=== PATIENT | male | born 1950 | race Caucasian/White ===

== ENCOUNTER 2018-09-27 07:44 | Day surgery (SDC) | payer MEDICARE, BC ==
[~2018-09-27] VITALS: Ht 177.8 cm; Wt 64.9 kg
[2018-09-27] VITALS (7 sets, daily range): BP systolic 99–119; BP diastolic 54–75
--- NOTE | 2018-09-27 07:06 | Anethesia Preoperative Eval ---
Anesthesia Pre-op PMH/ROS General Date of Evaluation: Sep 27, 2018 Time of Evaluation: 07:04 Anesthesiologist: joyce ASA Score: ASA 2 Mallampati Score Class I : Soft palate, uvula, fauces, pillars visible Class II: Soft palate, uvula, fauces visible Class III: Soft palate, base of uvula visible Class IV: Only hard plate visible Mallampati Classification: Class III Surgeon: ian Diagnosis: abdominal pain Surgical Procedure: colonoscopy Anesthesia History: none Social History: smoking - former smoker Allergies: Coded Allergies: No Known Allergies (Unverified , 09/27/18) Medications: see eMAR Patient NPO?: Yes Past Medical History Gastrointestinal/Genitourinary: Reports: GERD HEENT: Reports: cataract (L), cataract (R) Anesthesia Pre-op Phys. Exam Physician Exam Constitutional: NAD Neurologic: CN 2-12 intact, other - disconjugate gaze Cardiovascular: RRR Respiratory: CTA Gastrointestinal: S/NT/ND Airway Exam Mallampati Score: Class II MO: full Neck: flexible TMD: 2fb ROM: full Anesthesia Pre-op A/P Risk Assessment & Plan Assessment: asa2 Plan: mac Status Change Before Surgery: No Pre-Antibiotics Drug: Charissa Aquino MD Sep 27, 2018 07:06
[~2018-09-27 07:44] MED LIST: ASPIR 8181 MG ORAL; Atropine Inj 1mg/10ml Syr IV PRN; DEXILANT60 MG ORAL; DiphenhydrAMINE 50mg/ml Inj IVP PRN; LR 1000ml 1,000 ML IVLG SCH; MULTIVITAMINS1 EAC2 ORAL; Midazolam 2mg/2ml Inj IVP PRN; NKM; fentaNYL 100 mcg/2 mL IV PRN
[2018-09-27] MEDS ORDERED: Lidocaine 1% MPF 10mg/ml 5ml ONE (09:00)
[2018-09-27] MEDS ORDERED: LR 1000ml ONE (09:00)
[2018-09-27] MEDS ORDERED: Propofol 200mg/20ml IV ONE (09:00)
--- NOTE | 2018-09-27 09:09 | Short Stay Surgery H&P ---
History of Present Illness History of Present Illness Chief Complaint Abdominal pains and screening colonoscopy for familial colon CA HPI Usman Roman is a 67 year old male who was admitted on for Abdominal Pain/ screening colon Patient History Allergies: Coded Allergies: No Known Allergies (Unverified , 09/27/18) PAST MEDICAL HISTORY: (1) Diverticulosis Medication History Scheduled Aspirin* (Aspir 81*), 81 MG ORAL DAILY, (Reported) Dexlansoprazole (Dexilant), 60 MG ORAL DAILY, (Reported) Multivitamins* (Multivitamins*), 1 TAB ORAL DAILY, (Reported) Review of Systems Cardiovascular: Reports: no symptoms Respiratory: Reports: no symptoms Skeletal: Reports: no symptoms Gastrointestinal: Reports: gastro esophageal reflux disease Genitourinary: Reports: no symptoms Neurologic: Reports: no symptoms Endocrine: Reports: no symptoms Hematologic: Reports: no symptoms Physical Exam Vital Signs Last Vital Signs Date Time Temp Pulse Resp B/P (MAP) Pulse Ox O2 Delivery O2 Flow Rate FiO2 09/27/18 09:03 98.5 90 18 119/75 90 Room Air Skin: normal HENT: normal Heart: normal Lungs: normal Abdomen: normal Plan Plan of Care Upper and lower GI endoscopies Preop Interventions None. Summary of Findings See the reports Attestation Are the patient's medical conditions optimized for surgery? Attestation Response: yes Manuel Olguin MD Sep 27, 2018 09:09
--- NOTE | 2018-09-27 09:10 | Pre-Procedure Note/Attestation ---
Pre-Procedure Note/Attestation Complete Prior to Procedure Planned Procedure: left Procedure Narrative: Endoscopic examination of the upper and the lower GI tract with biopsy Indications for Procedure Pre-Operative Diagnosis: R/O gastritis/colon polyps/tumor Attestation I attest that I discussed the nature of the procedure; its benefits; risks and complications; and alternatives (and the risks and benefits of such alternatives ), prior to the procedure, with the patient (or the patient's legal marketing sales representative). I attest that, if there was a reasonable possibility of needing a blood transfusion, the patient (or the patient's legal marketing sales representative) was given the [place] [employer] standardized written summary, pursuant to the Jeff Dov[place] Blood Safety Act ([place] Health and Safety Code # 1645, as amended). I attest that I re-evaluated the patient just prior to the surgery and that there has been no change in the patient's H&P, except as documented below: Manuel Olguin MD Sep 27, 2018 09:10
--- NOTE | 2018-09-27 09:38 | Endoscopy Procedure Note ---
Endoscopy Procedure Note General Indication for Procedure: Abdominal pains and screening colon withy family of colon cancer Procedures Performed: EGD - Extremely difficult procedure as esophagus could not be penetrated due severe torsion. Patient is being refered for barium swallow., colonoscopy - Minimal internal hemorrhoids. Diverticulosis of colon otherwise normal total colonoscopy. No polyps/tumors found. Specimen: none Pt Tolerated Procedure Well: Yes Estimated Blood Loss: minimal Anesthesia Anesthesiologist: Dr. Maldonado Anesthesia: moderate sedation Medications Medication Given: see anesthesia record Inserted Devices Implant(s) used?: No Quality Quality of Bowel Preparation: Excellent Did scope reach the cecum?: Yes Was there any complications?: No GI Core Measures 50 yrs or older w/o bx or poly: Yes 10yrs. F/U not recommended: Yes If not recommended, why?: 18 years or older w/prev. colo: No Med reason:<3 yrs.: System Reason:<3 yrs.: Last colonoscopy >= to 3yrs: Yes Manuel Olguin MD Sep 27, 2018 09:38
--- NOTE | 2018-09-27 09:39 | Discharge Instructions ---
Discharge Instructions Discharge Instructions Follow up with: see the doctor in office next week, call first For Congestive Heart Failure Reminder Report to your physician any weight gain of 5 pounds or more in one week. Manuel Olguin MD Sep 27, 2018 09:39
--- NOTE | 2018-09-27 10:06 | Immediate Post-Op Evaluation ---
Immediate Post-Op Evalulation Immediate Post-Op Evalulation Procedure: egdcolonoscopy/bx Date of Evaluation: Sep 27, 2018 Time of Evaluation: 09:57 IV Fluids: 350ml lr Blood Products: none Estimated Blood Loss: negligible Blood Pressure Systolic: 98 Blood Pressure Diastolic: 68 Pulse Rate: 92 Respiratory Rate: 18 O2 Sat by Pulse Oximetry: 100 Temperature (Fahrenheit): 98.5 Pain Score (1-10): 0 Nausea: No Vomiting: No Complications none Patient Status: awake, reacts, patent Hydration Status: adequate Drug: Charissa Aquino MD Sep 27, 2018 10:06
--- NOTE | 2018-09-27 10:07 | 48 Hour Post Anesthesia Eval ---
Post Anesthesia Evaluation Procedure: egd/colonoscopy/bx Date of Evaluation: Sep 27, 2018 Time of Evaluation: 09:59 Blood Pressure Systolic: 106 0: 57 Pulse Rate: 96 Respiratory Rate: 18 Temperature (Fahrenheit): 98.5 O2 Sat by Pulse Oximetry: 100 Airway: patent Nausea: No Vomiting: No Pain Intensity: 0 Hydration Status: adequate Cardiopulmonary Status: stable Mental Status/LOC: patient returned to baseline Post-Anesthesia Complications: none Follow-up care needed: N/A Charissa Mendiola MD Sep 27, 2018 10:07
--- NOTE | 2018-09-27 16:15 | Operative Note - Dictated ---
DATE OF OPERATION: 09/27/2018 SURGEON: Manuel Olguin M.D. PROCEDURE: Upper GI endoscopy. PREOPERATIVE DIAGNOSES: Screening upper GI endoscopy, abdominal pain. POSTOPERATIVE DIAGNOSIS: Extremely difficult examination as the scope could not be penetrated through the esophagus due to severe torsion of the cricopharyngeal area. The patient is going to be referred for barium swallow and upper GI x-rays. MEDICATION USED: Per Dr. Maldonado, anesthesiologist. INSTRUMENT: GIF Olympus upper GI video endoscope. DESCRIPTION OF PROCEDURE: The patient, after arriving in endoscopy unit, was told about risks and benefits of the procedure which he accepted and signed informed consent. At this time, he was put in the left lateral decubitus position. After adequate IV sedation, the scope was tried to be passing through the cricopharyngeal area into the esophagus. It took significant amount of time as I was not able to pass it, as it was producing some bleeding from that area due to trauma. At this point, it was decided to abandon the procedure and refer the patient for obtaining barium swallow and upper GI x-rays as needed plus CT scan. The patient tolerated this procedure well. Manuel Olguin M.D. DR: Tim JOB#: [id number] CC:
--- NOTE | 2018-09-27 16:30 | Procedure Note ---
DATE OF PROCEDURE: 09/27/2018 SURGEON: Manuel Olguin M.D. PROCEDURE: Total colonoscopy. PREOPERATIVE DIAGNOSES: 1. Screening colonoscopy. 2. History of familial colon cancer. POSTOPERATIVE DIAGNOSES: 1. Minimal internal hemorrhoid. 2. Diverticulosis of the colon, otherwise completely normal study of colonoscopy up to the base of the cecum. MEDICATION USED: Per Dr. Maldonado, anesthesiologist. INSTRUMENT: GIF Olympus video colonoscope. DESCRIPTION OF PROCEDURE: The patient after arriving endoscopy unit, was told about risks and benefits of the procedure which he accepted and signed informed consent. He was then put on the left lateral decubitus position. After adequate IV sedation, the scope was gently passed through the anal area which revealed evidence of minimal internal hemorrhoids and nonsignificant. The rest of the rectum looked completely normal. At this time, the scope was gradually passed through the rectosigmoid and advanced into the left descending colon, which revealed numerous diverticular lesions compatible with priorly diagnosed diverticulosis of the colon. At this time, the scope was gradually advanced towards the splenic flexure, transverse colon, hepatic flexure, and finally guided into the right colon to the base of the cecum. All these areas were normal. Appendiceal opening was also visualized. The colon cleanup was adequate. At this time, within 6 minutes, the scope was gradually pulled out and no other pathology was found. Procedure at this time was terminated. The patient tolerated the procedure well and left the endoscopy room in a good condition. Manuel Olguin M.D. DR: Hayley JOB#: [id number] CC:
== END 2018-09-27 11:00 | disposition home or self-care (01) ==
LOC: SDS 07:44
DX: Z12.11 Encounter for screening for malignant neoplasm of colon (principal); Z80.0 Family history of malignant neoplasm of digestive organs; K64.8 Other hemorrhoids; K57.30 Diverticulosis of large intestine without perforation or abscess without bleeding; R10.9 Unspecified abdominal pain; Q31.8 Other congenital malformations of larynx; Q38.8 Other congenital malformations of pharynx; K21.9 Gastro-esophageal reflux disease without esophagitis; Z87.891 Personal history of nicotine dependence; Z79.82 Long term (current) use of aspirin
CPT/HCPCS: 43239; G0105; J2704; 94003; 94150

== ENCOUNTER 2018-09-30 08:21 | Outpatient (CLI) | payer MEDICARE, BC ==
[~2018-09-30 08:21] MED LIST changes: -Atropine Inj 1mg/10ml Syr IV PRN; -DiphenhydrAMINE 50mg/ml Inj IVP PRN; -LR 1000ml 1,000 ML IVLG SCH; -Midazolam 2mg/2ml Inj IVP PRN; -fentaNYL 100 mcg/2 mL IV PRN
--- NOTE | 2018-09-30 14:12 | Diagnostic Imaging Report ---
Indication: Dysphagia, unable to pass endoscope on recent endoscopy Technique: Patient ingested effervescent granules, oral thick and thin liquid barium, and rapid sequence spot images and static spot images obtained under fluoroscopic guidance, and overhead images also obtained Total fluoroscopy time 4.4 minutes. Total dose area product 373 dGycm2 Number of images: 213 Comparison: none Findings: With patient ingesting barium upright, there is a tapered narrowing of the distal esophagus which only opens occasionally. However, this does not appear to result in any significant impediment in forward flow of barium into the stomach, and no definite dysmotility is seen otherwise. On the prone images, the distal esophageal sphincter appears to open normally. There is no evidence of stricture, ulceration, or other obstructive process. No hiatal hernia is evident. No gastroesophageal reflux was observed fluoroscopically. Stomach demonstrates normal distensibility and motility. No filling defects, ulcerations, or erosions are demonstrated. There is one or more diverticula coming off of the gastric fundus. Gastric rugal pattern is normal. The duodenal bulb, sweep, and proximal small bowel are all unremarkable. Impression: Slightly tapered distal esophagus with patient ingesting upright, could indicate a slight degree of incomplete sphincter relaxation. However, this is inconstant, not observed on prone imaging. Esophagus otherwise appears unremarkable Gastric fundal diverticulum. No other significant abnormality.
== END 2018-09-30 10:21 | disposition home or self-care (01) ==
LOC: RAD 08:21
DX: R13.10 Dysphagia, unspecified (principal)
CPT/HCPCS: 74247